=== PATIENT | male | born 1995 ===

== ENCOUNTER 2019-05-03 10:38 | Emergency (ER) | payer OTHER ==
[~2019-05-03] VITALS: Ht 165.1 cm; Wt 59.0 kg
[2019-05-03] MEDS ORDERED: ZYRTEC10 M3 PO (10:44)
[2019-05-03] MEDS ORDERED: SINGULAIR10 MG PO (10:44)
== END 2019-05-03 12:02 | disposition home or self-care (01) ==
LOC: ER 10:38
DX: R22.0 Localized swelling, mass and lump, head (principal); T39.015A Adverse effect of aspirin, initial encounter